=== PATIENT | female | born 1995 | race Caucasian/White ===

== ENCOUNTER 2019-12-01 12:47 | Inpatient (IN) | payer SELFPAY ==
[~2019-12-01] VITALS: Ht 167.6 cm; Wt 66.8 kg
[2019-12-01] MEDS ORDERED: HALOPERIDOL LACTATE 5 MG/ML VIAL IM ONE (13:30)
[2019-12-01] MEDS ORDERED: LORazepam 2 MG/ML VIAL IM ONE ×2 (13:30→15:30)
[2019-12-01] MEDS ORDERED: DiphenhydrAMINE HCL 50 MG/ML VIAL IM ONE (13:30)
[2019-12-01 15:24] LABS: BASOPHILS % (AUTO) 0.3 % (0.0-2.0); EOSINOPHILS % (AUTO) 0.4 % (1.0-6.0); HEMATOCRIT 39.4 % (36-46); HEMOGLOBIN 13.2 g/dL (12.0-16.0); LYMPHOCYTES # (AUTO) 1.2 K/uL (1.0-4.8); LYMPHOCYTES % (AUTO) 13.1 % (22.0-44.0); MEAN CORPUSCULAR HEMOGLOBIN 32.4 pg (26.0-34.0); MEAN CORPUSCULAR HGB CONC 33.5 G/dL (31.0-37.0); MEAN CORPUSCULAR VOLUME 97 fL (80-100); MONOCYTES # (AUTO) 0.9 K/uL (0.1-1.0); MONOCYTES % (AUTO) 9.8 % (2.0-9.0); NEUTROPHILS # (AUTO) 6.9 K/uL (1.8-7.7); NEUTROPHILS % (AUTO) 76.4 % (40.0-70.0); PLATELET COUNT (AUTO) 280 K/uL (150-450); RED BLOOD CELL COUNT(AUTO) 4.08 MIL/uL (4.00-5.20); RED CELL DISTRIBUTION WIDTH 12.6 % (11.5-14.5)
[2019-12-01 15:36] LABS: ANION GAP 6 mmol/L (8-16); CALCIUM, TOTAL 8.6 mg/dL (8.8-10.5); CARBON DIOXIDE 26 mmol/L (22-29); CHLORIDE 103 mmol/L (98-107); GLOMERULAR FILTR. RATE CALC > 60 mL/min (>60); GLUCOSE,RANDOM 74 mg/dL (70-110); POTASSIUM 3.9 mmol/L (3.5-5.1); SODIUM SERUM 135 mmol/L (136-145); UREA NITROGEN, BLOOD 10 mg/dL (7-18)
[2019-12-01 15:42] LABS: SALICYLATE 1.5 mg/dL (2.8-20.0)
[2019-12-01] MEDS ORDERED: MIDAZOLAM HCL 5 MG/ML VIAL IM ONE (15:45)
[2019-12-01 15:46] LABS: ACETONE,BLOOD NEGATIVE (NEGATIVE)
[2019-12-01 15:50] LABS: ALANINE AMINOTRANSFERASE 18 U/L (12-78); ALBUMIN 3.8 g/dL (3.4-5.0); ALKALINE PHOSPHATASE 53 U/L (46-116); ASPARTATE AMINOTRANSFERASE 14 U/L (15-37); BILIRUBIN,TOTAL 0.3 mg/dL (0.1-1.0); HCG,QUANTITATIVE < 1 mIU/mL (0-6); THYROID STIMULATING HORMONE 1.16 uIU/mL (0.36-3.74); TOTAL PROTEIN, SERUM 7.3 g/dL (6.4-8.2)
[2019-12-01] MEDS ORDERED: MIDAZOLAM HCL 2 MG/2 ML VIAL IM ONE (16:30)
[2019-12-01] MEDS ORDERED: ACETAMINOPHEN 325 MG TABLET PO PRN (19:15)
[2019-12-01] MEDS ORDERED: 0.9% SODIUM CHLORIDE 10 ML SYRINGE IVP PRN (19:15)
[2019-12-01] MEDS ORDERED: ONDANSETRON HCL 4 MG/2 ML VIAL IVP PRN (19:15)
[2019-12-02 01:05] LABS: APPEARANCE,URINE CLOUDY (CLEAR); BILIRUBIN,URINE NEGATIVE (NEGATIVE); GLUCOSE, URINE (UA) NEGATIVE (NEGATIVE); KETONES,URINE 40 mg/dL (NEGATIVE); LEUKOCYTE ESTERASE ,URINE SMALL (NEGATIVE); NITRATE,URINE POSITIVE (NEGATIVE); OCCULT BLOOD,URINE NEGATIVE (NEGATIVE); PROTEIN,URINE NEGATIVE (NEGATIVE); UROBILINOGEN,URINE 0.2 mg/dL (<=1.0)
[2019-12-02 01:12] LABS: AMPHET/METH SCREEN,URINE POSITIVE (NEGATIVE); BARBITURATE SCREEN, URINE NEGATIVE (NEGATIVE); BENZODIAZEPINES SCREEN,URINE POSITIVE (NEGATIVE); CANNABINOID SCREEN,URINE POSITIVE (NEGATIVE); COCAINE SCREEN,URINE NEGATIVE (NEGATIVE); METHADONE SCREEN, URINE NEGATIVE (NEGATIVE); OPIATE SCREEN,URINE NEGATIVE (NEGATIVE)
[2019-12-02 01:15] LABS: PHENCYCLIDINE SCREEN,URINE NEGATIVE (NEGATIVE)
[2019-12-02 01:27] LABS: BACTERIA,URINE Many /HPF (None Seen); RBC,URINE 0-2 /HPF (0-2)
[2019-12-02 01:28] LABS: SQUAMOUS EPITHELIAL CELL,UR Moderate /LPF (None Seen)
[2019-12-02 01:34] VITALS: BP 101/57
[2019-12-02] MEDS ORDERED: LORazepam 2 MG/ML VIAL IM PRN (05:15)
[2019-12-02] MEDS ORDERED: DiphenhydrAMINE HCL 50 MG/ML VIAL IM PRN (05:15)
[2019-12-02] MEDS ORDERED: HALOPERIDOL LACTATE 5 MG/ML VIAL IM ONE (05:15)
[2019-12-02] MEDS ORDERED: 0.9% SODIUM CHLORIDE 10 ML SYRINGE IVP PRN (05:15)
[2019-12-02] MEDS ORDERED: ONDANSETRON HCL 4 MG/2 ML VIAL IVP PRN (05:15)
[2019-12-02] MEDS ORDERED: OxyCODONE HCL/ACETAMINOPHEN 5-325 MG TABLET PO PRN ×2 (05:15)
[2019-12-02 05:23] VITALS: BP 99/43
[2019-12-02 08:07] VITALS: BP 94/52
[2019-12-02] MEDS ORDERED: DOCUSATE SODIUM 100 MG CAPSULE PO SCH (09:00)
[2019-12-02 11:03] VITALS: BP 98/50
[2019-12-02] MEDS ORDERED: QUEtiapine FUMARATE 100 MG TABLET PO SCH (21:00)
== END 2019-12-02 13:55 | DRG 641 ==
LOC: EMS 12:51 → 5N 12-02 00:39
PROVIDERS: ADMIT Internal Medicine; ATTEND Internal Medicine
DX: E87.1 Hypo-osmolality and hyponatremia (principal); N39.0 Urinary tract infection, site not specified; F19.10 Other psychoactive substance abuse, uncomplicated; F29 Unspecified psychosis not due to a substance or known physiological condition; J32.0 Chronic maxillary sinusitis; Z59.0 Homelessness
CPT/HCPCS: 70450; 84443; 87086; 87635; G0480; J1200; J1630; J2060; J2250

== ENCOUNTER 2019-12-02 13:19 | Inpatient (IN) | payer MEDICAID ==
[~2019-12-02] VITALS: Ht 167.6 cm; Wt 72.1 kg
[2019-12-02] MEDS ORDERED: ZOLPIDEM TARTRATE 10 MG TABLET PO PRN (14:45)
[2019-12-02 16:10] VITALS: BP 113/72
[2019-12-02 16:25] VITALS: BP 113/72
[2019-12-02] MEDS ORDERED: INFLUENZA VIRUS VACCINE QVS 2019-20 (3YR+)/PF 60 MCG/0.5 ML SYRINGE IM ONE (16:30)
[2019-12-02] MEDS: QUEtiapine FUMARATE 200 MG TABLET PO SCH (20:29)
[2019-12-03 06:42] VITALS: BP 120/81
[2019-12-03 08:21] VITALS: BP 114/50
[2019-12-03] MEDS: CEPHALEXIN MONOHYDRATE 250 MG CAPSULE PO SCH ×3 (09:20→17:11)
[2019-12-03] MEDS: LORazepam 2 MG TABLET PO PRN (17:11)
[2019-12-03] MEDS: HALOPERIDOL 5 MG TABLET PO PRN (17:11)
[2019-12-03 17:36] VITALS: BP 114/64
[2019-12-03] MEDS: QUEtiapine FUMARATE 200 MG TABLET PO SCH (20:27)
[2019-12-04 01:42] VITALS: BP 104/75
[2019-12-04 08:45] VITALS: BP 100/54
[2019-12-04] MEDS: CEPHALEXIN MONOHYDRATE 250 MG CAPSULE PO SCH ×3 (08:53→17:45)
[2019-12-04 16:16] VITALS: BP 135/90
[2019-12-04] MEDS ORDERED: DiphenhydrAMINE HCL 50 MG/ML VIAL IM ONE (18:15)
[2019-12-04] MEDS ORDERED: LORazepam 2 MG/ML VIAL IM ONE (18:15)
[2019-12-04] MEDS ORDERED: HALOPERIDOL LACTATE 5 MG/ML VIAL IM ONE (18:15)
[2019-12-04] MEDS: QUEtiapine FUMARATE 200 MG TABLET PO SCH (21:00)
[2019-12-05 04:48] VITALS: BP 125/86
[2019-12-05 08:33] VITALS: BP 106/62
[2019-12-05] MEDS: LORazepam 2 MG TABLET PO PRN ×2 (10:01→20:26)
[2019-12-05] MEDS: CEPHALEXIN MONOHYDRATE 250 MG CAPSULE PO SCH ×3 (10:01→16:32)
[2019-12-05 16:05] VITALS: BP 106/69
[2019-12-05] MEDS: QUEtiapine FUMARATE 200 MG TABLET PO SCH (20:26)
[2019-12-06 02:15] VITALS: BP 138/70
[2019-12-06] MEDS: CEPHALEXIN MONOHYDRATE 250 MG CAPSULE PO SCH ×3 (08:39→16:37)
[2019-12-06] MEDS: HALOPERIDOL 5 MG TABLET PO PRN (12:29)
[2019-12-06] MEDS: LORazepam 2 MG TABLET PO PRN (12:29)
[2019-12-06 16:07] VITALS: BP 108/65
[2019-12-06] MEDS: QUEtiapine FUMARATE 200 MG TABLET PO SCH (21:02)
[2019-12-07 01:17] VITALS: BP 100/59
[2019-12-07 08:31] VITALS: BP 109/64
[2019-12-07] MEDS: CEPHALEXIN MONOHYDRATE 250 MG CAPSULE PO SCH ×3 (08:42→16:02)
[2019-12-07] MEDS: HALOPERIDOL 5 MG TABLET PO PRN (16:02)
[2019-12-07] MEDS: LORazepam 2 MG TABLET PO PRN (16:02)
[2019-12-07 17:21] VITALS: BP 116/60
[2019-12-07] MEDS: QUEtiapine FUMARATE 200 MG TABLET PO SCH (21:01)
[2019-12-08 04:05] VITALS: BP 105/63
[2019-12-08] MEDS: CEPHALEXIN MONOHYDRATE 250 MG CAPSULE PO SCH ×4 (09:00→15:45)
[2019-12-08] MEDS: LORazepam 2 MG TABLET PO PRN (15:45)
[2019-12-08] MEDS: HALOPERIDOL 5 MG TABLET PO PRN (15:45)
[2019-12-08 16:14] VITALS: BP 108/58
[2019-12-08] MEDS: QUEtiapine FUMARATE 200 MG TABLET PO SCH (20:27)
[2019-12-09 02:19] VITALS: BP 103/59
[2019-12-09 08:17] VITALS: BP 109/82
[2019-12-09] MEDS: LORazepam 2 MG TABLET PO PRN ×2 (08:29→16:18)
[2019-12-09] MEDS: CEPHALEXIN MONOHYDRATE 250 MG CAPSULE PO SCH ×3 (08:29→16:18)
[2019-12-09] MEDS: HALOPERIDOL 5 MG TABLET PO PRN (16:18)
[2019-12-09 17:08] VITALS: BP 108/63
[2019-12-09] MEDS: QUEtiapine FUMARATE 300 MG TABLET PO SCH (21:16)
[2019-12-10 03:16] VITALS: BP 121/68
[2019-12-10 08:22] VITALS: BP 123/62
[2019-12-10] MEDS: CEPHALEXIN MONOHYDRATE 250 MG CAPSULE PO SCH ×3 (09:10→16:37)
[2019-12-10] MEDS: LORazepam 2 MG TABLET PO PRN ×2 (09:19→17:52)
[2019-12-10] MEDS: HALOPERIDOL 5 MG TABLET PO PRN (16:37)
[2019-12-10 17:51] VITALS: BP 109/65
[2019-12-10] MEDS: QUEtiapine FUMARATE 300 MG TABLET PO SCH (20:34)
[2019-12-11 04:06] VITALS: BP 100/75
[2019-12-11 08:25] VITALS: BP 111/69
[2019-12-11] MEDS: CEPHALEXIN MONOHYDRATE 250 MG CAPSULE PO SCH ×3 (08:38→17:58)
[2019-12-11] MEDS: LORazepam 2 MG TABLET PO PRN ×2 (08:38→19:39)
[2019-12-11 17:58] VITALS: BP 100/58
[2019-12-11] MEDS: HALOPERIDOL 5 MG TABLET PO PRN (17:58)
[2019-12-11] MEDS: QUEtiapine FUMARATE 300 MG TABLET PO SCH (21:00)
[2019-12-12 04:39] VITALS: BP 102/66
[2019-12-12 08:31] VITALS: BP 114/79
[2019-12-12] MEDS: CEPHALEXIN MONOHYDRATE 250 MG CAPSULE PO SCH ×3 (09:34→16:59)
[2019-12-12] MEDS: LORazepam 2 MG TABLET PO PRN ×2 (10:24→16:37)
[2019-12-12] MEDS: HALOPERIDOL 5 MG TABLET PO PRN (16:37)
[2019-12-12 17:51] VITALS: BP 102/66
[2019-12-12] MEDS: QUEtiapine FUMARATE 300 MG TABLET PO SCH (20:45)
[2019-12-13 04:23] VITALS: BP 110/65
[2019-12-13 08:29] VITALS: BP 100/57
[2019-12-13] MEDS ORDERED: LORazepam 2 MG/ML VIAL IM ONE (15:00)
[2019-12-13] MEDS ORDERED: DiphenhydrAMINE HCL 50 MG/ML VIAL IM ONE (15:00)
[2019-12-13] MEDS ORDERED: HALOPERIDOL LACTATE 5 MG/ML VIAL IM ONE (15:00)
[2019-12-13] MEDS: QUEtiapine FUMARATE 300 MG TABLET PO SCH (20:20)
[2019-12-14 04:01] VITALS: BP 109/67
[2019-12-14 08:33] VITALS: BP 119/74
[2019-12-14] MEDS: QUEtiapine FUMARATE 200 MG TABLET PO SCH ×2 (09:15→21:13)
[2019-12-14] MEDS: LORazepam 2 MG TABLET PO PRN (09:58)
[2019-12-14] MEDS ORDERED: LORazepam 2 MG/ML VIAL ONE (11:30)
[2019-12-14] MEDS ORDERED: DiphenhydrAMINE HCL 50 MG/ML VIAL ONE (11:30)
[2019-12-14] MEDS ORDERED: HALOPERIDOL LACTATE 5 MG/ML VIAL ONE (11:30)
[2019-12-14] MEDS ORDERED: DiphenhydrAMINE HCL 50 MG/ML VIAL IM ONE (11:40)
[2019-12-14] MEDS ORDERED: LORazepam 2 MG/ML VIAL IM ONE (11:40)
[2019-12-14] MEDS ORDERED: HALOPERIDOL LACTATE 5 MG/ML VIAL IM ONE (11:40)
[2019-12-14 12:41] VITALS: BP 109/68
[2019-12-14 22:14] VITALS: BP 92/60
[2019-12-15 04:46] VITALS: BP 88/67
[2019-12-15] MEDS: LORazepam 2 MG TABLET PO PRN ×2 (08:08→15:56)
[2019-12-15] MEDS: QUEtiapine FUMARATE 200 MG TABLET PO SCH ×2 (08:08→20:39)
[2019-12-15 08:39] VITALS: BP 114/69
[2019-12-15 17:07] VITALS: BP 113/65
[2019-12-16 05:00] VITALS: BP 105/74
[2019-12-16] MEDS: QUEtiapine FUMARATE 200 MG TABLET PO SCH ×2 (08:49→20:28)
[2019-12-16 11:14] VITALS: BP 110/60
[2019-12-16 16:08] VITALS: BP 128/72
[2019-12-16] MEDS: LORazepam 2 MG TABLET PO PRN (16:23)
[2019-12-17 06:58] VITALS: BP 116/70
[2019-12-17 08:16] VITALS: BP 121/60
[2019-12-17] MEDS: QUEtiapine FUMARATE 200 MG TABLET PO SCH ×2 (08:47→20:24)
[2019-12-17] MEDS: HALOPERIDOL 5 MG TABLET PO PRN ×2 (08:47→19:37)
[2019-12-17 16:31] VITALS: BP 102/68
[2019-12-17] MEDS: LORazepam 2 MG TABLET PO PRN (19:37)
[2019-12-18 03:07] VITALS: BP 111/62
[2019-12-18] MEDS: LORazepam 2 MG TABLET PO PRN (08:03)
[2019-12-18] MEDS: HALOPERIDOL 5 MG TABLET PO PRN (08:04)
[2019-12-18] MEDS: QUEtiapine FUMARATE 200 MG TABLET PO SCH (08:04)
[2019-12-18 08:07] VITALS: BP 103/56
[2019-12-18 17:33] VITALS: BP 134/60
[2019-12-18] MEDS: QUEtiapine FUMARATE 300 MG TABLET PO SCH (20:21)
[2019-12-19 03:15] VITALS: BP 124/67
[2019-12-19 08:16] VITALS: BP 109/62
[2019-12-19] MEDS: QUEtiapine FUMARATE 300 MG TABLET PO SCH ×2 (08:51→20:20)
[2019-12-19 16:00] VITALS: BP 116/72
[2019-12-19] MEDS: HALOPERIDOL 5 MG TABLET PO PRN (16:54)
[2019-12-19] MEDS ORDERED: LORazepam 2 MG/ML VIAL IM ONE (21:30)
[2019-12-19] MEDS ORDERED: HALOPERIDOL LACTATE 5 MG/ML VIAL IM ONE (21:30)
[2019-12-19] MEDS ORDERED: DiphenhydrAMINE HCL 50 MG/ML VIAL IM ONE (21:30)
[2019-12-19 22:08] VITALS: BP 116/73
[2019-12-20 06:22] VITALS: BP 98/57
[2019-12-20 08:16] VITALS: BP 106/62
[2019-12-20] MEDS: QUEtiapine FUMARATE 300 MG TABLET PO SCH ×3 (08:31→20:15)
[2019-12-20] MEDS: HALOPERIDOL 5 MG TABLET PO PRN (15:44)
[2019-12-20 16:34] VITALS: BP 149/63
[2019-12-20] MEDS ORDERED: PRAZOSIN HCL 1 MG CAPSULE PO SCH (21:00)
[2019-12-21 04:27] VITALS: BP 125/72
[2019-12-21 08:12] VITALS: BP 100/59
[2019-12-21] MEDS ORDERED: QUET300T2 PO ×2 (08:13→08:20)
[2019-12-21] MEDS: QUEtiapine FUMARATE 300 MG TABLET PO SCH (08:18)
[2019-12-21] MEDS ORDERED: PRAZ1 PO (11:44)
[2019-12-22] MEDS ORDERED: MACR100 PO (09:48)
== END 2019-12-21 08:30 | disposition home or self-care (01) | DRG 750 ==
LOC: B3A 14:15
DX: F20.0 Paranoid schizophrenia (principal); E83.51 Hypocalcemia; E87.1 Hypo-osmolality and hyponatremia; F12.10 Cannabis abuse, uncomplicated; F15.10 Other stimulant abuse, uncomplicated; Z59.0 Homelessness; Z79.899 Other long term (current) drug therapy; Z23 Encounter for immunization
CPT/HCPCS: 90686; J1200; J1630; J2060

== ENCOUNTER 2019-12-22 09:22 | Inpatient (IN) | payer MEDICAID ==
[~2019-12-22] VITALS: Ht 154.9 cm; Wt 74.8 kg
[~2019-12-22 09:22] MED LIST: PRAZ1 PO; QUET300T2 PO
[2019-12-22] MEDS ORDERED: MACR100 PO (09:48)
[2019-12-22 10:10] LABS: ANION GAP 5 mmol/L (8-16); CALCIUM, TOTAL 8.4 mg/dL (8.8-10.5); CARBON DIOXIDE 28 mmol/L (22-29); CHLORIDE 105 mmol/L (98-107); CREATININE 0.58 mg/dL (0.60-1.30); GLOMERULAR FILTR. RATE CALC > 60 mL/min (>60); GLUCOSE,RANDOM 84 mg/dL (70-110); POTASSIUM 5.2 mmol/L (3.5-5.1); SODIUM SERUM 138 mmol/L (136-145); UREA NITROGEN, BLOOD 12 mg/dL (7-18)
[2019-12-22 10:15] LABS: BASOPHILS % (AUTO) 0.5 % (0.0-2.0); EOSINOPHILS % (AUTO) 1.1 % (1.0-6.0); HEMATOCRIT 36.9 % (36-46); HEMOGLOBIN 12.6 g/dL (12.0-16.0); LYMPHOCYTES # (AUTO) 2.5 K/uL (1.0-4.8); LYMPHOCYTES % (AUTO) 28.8 % (22.0-44.0); MEAN CORPUSCULAR HEMOGLOBIN 32.6 pg (26.0-34.0); MEAN CORPUSCULAR HGB CONC 34.1 G/dL (31.0-37.0); MEAN CORPUSCULAR VOLUME 96 fL (80-100); MONOCYTES # (AUTO) 0.8 K/uL (0.1-1.0); MONOCYTES % (AUTO) 9.5 % (2.0-9.0); NEUTROPHILS # (AUTO) 5.1 K/uL (1.8-7.7); NEUTROPHILS % (AUTO) 60.1 % (40.0-70.0); PLATELET COUNT (AUTO) 322 K/uL (150-450); RED BLOOD CELL COUNT(AUTO) 3.85 MIL/uL (4.00-5.20); RED CELL DISTRIBUTION WIDTH 12.9 % (11.5-14.5)
[2019-12-22 10:16] LABS: ALANINE AMINOTRANSFERASE 27 U/L (12-78); ALBUMIN 3.6 g/dL (3.4-5.0); ALKALINE PHOSPHATASE 65 U/L (46-116); ASPARTATE AMINOTRANSFERASE 33 U/L (15-37); BILIRUBIN,TOTAL 0.3 mg/dL (0.1-1.0); TOTAL PROTEIN, SERUM 7.3 g/dL (6.4-8.2)
[2019-12-22 10:43] LABS: AMPHET/METH SCREEN,URINE NEGATIVE (NEGATIVE); BARBITURATE SCREEN, URINE NEGATIVE (NEGATIVE); BENZODIAZEPINES SCREEN,URINE NEGATIVE (NEGATIVE); CANNABINOID SCREEN,URINE POSITIVE (NEGATIVE); COCAINE SCREEN,URINE NEGATIVE (NEGATIVE); METHADONE SCREEN, URINE NEGATIVE (NEGATIVE); OPIATE SCREEN,URINE NEGATIVE (NEGATIVE)
[2019-12-22 10:47] LABS: PHENCYCLIDINE SCREEN,URINE NEGATIVE (NEGATIVE)
[2019-12-22] MEDS ORDERED: QUEtiapine FUMARATE 100 MG TABLET PO ONE (12:15)
[2019-12-22] MEDS ORDERED: LORazepam 2 MG TABLET PO ONE (14:00)
[2019-12-22] MEDS: LORazepam 2 MG TABLET PO PRN (16:32)
[2019-12-22] MEDS: HALOPERIDOL 5 MG TABLET PO PRN (16:32)
[2019-12-22 16:34] VITALS: BP 111/68
[2019-12-22] MEDS ORDERED: -PHARMACY VACCINE NOTE- MISC ONE (17:45)
[2019-12-22] MEDS: QUEtiapine FUMARATE 300 MG TABLET PO SCH (22:06)
[2019-12-23 08:34] VITALS: BP 111/95
[2019-12-23] MEDS: QUEtiapine FUMARATE 300 MG TABLET PO SCH ×5 (08:53→21:12)
[2019-12-23] MEDS: DIVALPROEX SODIUM 500 MG DR TABLET PO SCH ×3 (09:30→21:13)
[2019-12-23] MEDS ORDERED: ACETAMINOPHEN 325 MG TABLET PO PRN (11:30)
[2019-12-23] MEDS ORDERED: MAG HYDROX/AL HYDROX/SIMETH ES 30 ML SUSPENSION UDCUP PO PRN (11:30)
[2019-12-23] MEDS ORDERED: LOPERAMIDE HCL 2 MG CAPSULE PO PRN (11:30)
[2019-12-23] MEDS ORDERED: GuaiFENesin/D-METHORPHAN [SUGAR-FREE] 200-20MG/10 ML SYRUP UDCUP PO PRN (11:30)
[2019-12-23] MEDS ORDERED: MAGNESIUM HYDROXIDE SUSPENSION 30 ML UDCUP PO PRN (11:30)
[2019-12-23] MEDS ORDERED: NICOTINE 14 MG/24 HOUR PATCH TD PRN (11:30)
[2019-12-23] MEDS ORDERED: ALBUTEROL SULFATE HFA 90 MCG/PUFF 8 GM INHALER IH PRN (11:30)
[2019-12-23] MEDS ORDERED: PETROLATUM,WHITE 28 GM JELLY TP PRN (11:30)
[2019-12-23] MEDS ORDERED: CloNIDine HCL 0.1 MG TABLET PO PRN (11:30)
[2019-12-23] MEDS ORDERED: ONDANSETRON HCL 4 MG TABLET PO PRN (11:30)
[2019-12-23] MEDS ORDERED: DOCUSATE SODIUM 100 MG CAPSULE PO PRN (11:30)
[2019-12-23] MEDS ORDERED: IBUPROFEN 400 MG TABLET PO PRN (11:30)
[2019-12-23 16:51] VITALS: BP 113/70
[2019-12-23] MEDS: LORazepam 2 MG TABLET PO PRN (17:19)
[2019-12-23] MEDS: HALOPERIDOL 5 MG TABLET PO PRN (17:19)
[2019-12-24 08:00] VITALS: BP 107/68
[2019-12-24] MEDS: DIVALPROEX SODIUM 500 MG DR TABLET PO SCH ×2 (08:24→21:05)
[2019-12-24] MEDS: QUEtiapine FUMARATE 300 MG TABLET PO SCH ×2 (08:24→21:05)
[2019-12-24] MEDS ORDERED: POTASSIUM CHLORIDE 20 MEQ ER TABLET PO ONE (10:15)
[2019-12-24 16:39] VITALS: BP 99/60
[2019-12-24 17:41] VITALS: BP 119/65
[2019-12-24] MEDS: HALOPERIDOL 5 MG TABLET PO PRN (17:41)
[2019-12-24] MEDS: LORazepam 2 MG TABLET PO PRN (17:41)
[2019-12-25] MEDS: QUEtiapine FUMARATE 300 MG TABLET PO SCH ×2 (08:09→20:39)
[2019-12-25] MEDS: DIVALPROEX SODIUM 500 MG DR TABLET PO SCH ×2 (08:09→20:39)
[2019-12-25] MEDS: LORazepam 2 MG TABLET PO PRN ×2 (08:10→16:11)
[2019-12-25] MEDS: HALOPERIDOL 5 MG TABLET PO PRN ×2 (08:10→16:11)
[2019-12-25 10:57] VITALS: BP 142/91
[2019-12-25 19:26] VITALS: BP 102/62
[2019-12-26] MEDS: DIVALPROEX SODIUM 500 MG DR TABLET PO SCH ×2 (08:50→20:35)
[2019-12-26] MEDS: QUEtiapine FUMARATE 300 MG TABLET PO SCH ×2 (08:50→20:35)
[2019-12-26 10:10] VITALS: BP 128/85
[2019-12-26] MEDS: HALOPERIDOL 5 MG TABLET PO PRN (10:37)
[2019-12-26] MEDS: LORazepam 2 MG TABLET PO PRN (10:37)
[2019-12-26 16:47] VITALS: BP 117/86
[2019-12-27] MEDS: HALOPERIDOL 5 MG TABLET PO PRN (08:01)
[2019-12-27] MEDS: LORazepam 2 MG TABLET PO PRN (08:01)
[2019-12-27] MEDS: QUEtiapine FUMARATE 300 MG TABLET PO SCH ×2 (08:05→20:38)
[2019-12-27] MEDS: DIVALPROEX SODIUM 500 MG DR TABLET PO SCH ×2 (08:05→20:39)
[2019-12-27 10:23] VITALS: BP 117/74
[2019-12-27 16:22] VITALS: BP 105/68
[2019-12-28] MEDS: ZOLPIDEM TARTRATE 10 MG TABLET PO PRN ×2 (01:07→23:50)
[2019-12-28] MEDS: HALOPERIDOL 5 MG TABLET PO PRN (05:24)
[2019-12-28] MEDS: LORazepam 2 MG TABLET PO PRN (05:24)
[2019-12-28] MEDS: DIVALPROEX SODIUM 500 MG DR TABLET PO SCH ×2 (08:19→20:29)
[2019-12-28] MEDS: QUEtiapine FUMARATE 300 MG TABLET PO SCH ×2 (08:19→20:29)
[2019-12-28 09:40] VITALS: BP 105/69
[2019-12-28 16:00] VITALS: BP 113/61
[2019-12-29] MEDS: LORazepam 2 MG TABLET PO PRN (02:02)
[2019-12-29 08:00] VITALS: BP 123/83
[2019-12-29] MEDS: QUEtiapine FUMARATE 300 MG TABLET PO SCH (08:32)
[2019-12-29] MEDS: DIVALPROEX SODIUM 500 MG DR TABLET PO SCH (08:32)
[2019-12-29] MEDS ORDERED: DIVA-78 PO (13:09)
== END 2019-12-29 16:00 | disposition home or self-care (01) | DRG 885 ==
LOC: EMS 09:23 → 3EC 15:43
DX: F20.0 Paranoid schizophrenia (principal); F15.10 Other stimulant abuse, uncomplicated; F12.10 Cannabis abuse, uncomplicated; E87.5 Hyperkalemia; R00.0 Tachycardia, unspecified; E83.51 Hypocalcemia; Z59.0 Homelessness; Z87.440 Personal history of urinary (tract) infections
CPT/HCPCS: 84132; G0480